=== PATIENT | female | born 1990 | race Caucasian/White ===

== ENCOUNTER 2022-08-14 13:33 | Emergency (ER) | payer MEDICAID ==
[~2022-08-14] VITALS: Ht 167.6 cm; Wt 134.0 kg
[2022-08-14 13:40] VITALS: BP 127/79
[2022-08-14] MEDS ORDERED: SODIUM CHLORIDE 0.9% 1,000 ML IV ONE (14:15)
[2022-08-14 15:34] LABS: BASOPHILS % 0.5 % (0.0-2.0); EOSINOPHILS % 1.4 % (0.0-5.0); HEMATOCRIT. 39.7 % (36.0-48.0); HEMOGLOBIN. 13.5 g/dL (12.0-16.0); LYMPHOCYTES % 39.6 % (20.0-50.0); MEAN CORPUSCULAR HEMOGLOBIN 32.1 pg (28.0-32.0); MEAN CORPUSCULAR VOLUME 94.7 fL (81.0-99.0); MEAN PLATELET VOLUME 8.5 fl (7.4-10.4); MONOCYTES % 11.2 % (2.0-8.0); NEUTROPHILS % 47.3 % (40.0-76.0); PLATELET 124 x1000/uL (130-400); RED BLOOD CELL COUNT 4.19 mill/uL (4.2-5.4); RED CELL DISTRIBUTION WIDTH 14.9 % (11.6-14.6)
[2022-08-14 15:50] LABS: CHLORIDE 106 mEq/L (98-107)
[2022-08-14 15:58] LABS: HCG SCREEN NEGATIVE
[2022-08-14 16:16] LABS: ETHANOL BLOOD 313 mg/dL
== END 2022-08-14 14:46 | disposition left against medical advice (07) ==
LOC: EDBD 13:49 → ER 13:49
DX: F10.129 Alcohol abuse with intoxication, unspecified (principal); Y90.8 Blood alcohol level of 240 mg/100 ml or more; F19.90 Other psychoactive substance use, unspecified, uncomplicated; I45.10 Unspecified right bundle-branch block; I49.3 Ventricular premature depolarization; R03.0 Elevated blood-pressure reading, without diagnosis of hypertension
CPT/HCPCS: 36415; 80053; 80307; 80320; 80329; 84703; 85025; 93005; 99284; J7030; G0480

== ENCOUNTER 2022-08-19 09:44 | Emergency (ER) | payer MEDICAID ==
[~2022-08-19] VITALS: Ht 177.8 cm; Wt 80.0 kg
[2022-08-19 09:49] VITALS: BP 135/99
== END 2022-08-19 11:20 | disposition home or self-care (01) ==
LOC: ER 09:44
DX: F10.129 Alcohol abuse with intoxication, unspecified (principal); Y90.9 Presence of alcohol in blood, level not specified; Z95.810 Presence of automatic (implantable) cardiac defibrillator
CPT/HCPCS: 93005; 99283

== ENCOUNTER 2023-07-16 05:40 | Emergency (ER) | payer MEDICAID ==
[~2023-07-16] VITALS: Ht 175.3 cm; Wt 64.0 kg
[2023-07-16 05:45] VITALS: BP 83/33; RESP 16; TEMP 98.6; O2SAT 100
[2023-07-16 06:17] VITALS: PULSE 104
== END 2023-07-16 10:52 | disposition left against medical advice (07) ==
LOC: ER 05:40
DX: M25.572 Pain in left ankle and joints of left foot (principal); Z53.21 Procedure and treatment not carried out due to patient leaving prior to being seen by health care provider
CPT/HCPCS: 99281